=== PATIENT | male | born 1965 | race Hispanic/Latino ===

== ENCOUNTER 2022-08-07 22:17 | Emergency (ER) | payer BC ==
[~2022-08-07] VITALS: Ht 167.6 cm; Wt 80.7 kg
[2022-08-07 22:24] VITALS: BP 164/94
[2022-08-07] MEDS ORDERED: AMOX1TAB16 PO (23:14)
[2022-08-07] MEDS ORDERED: IBUPROFEN 600 MG TABLET PO ONE (23:30)
[2022-08-07] MEDS ORDERED: TETANUS/DIPHTHERIA TOXOID [ADULT] 0.5 ML VIAL IM ONE (23:30)
[2022-08-08] MEDS ORDERED: CEFTRIAXONE 1G VIAL IM ONE (00:30)
[2022-08-08] MEDS ORDERED: ACET-2079 PO (05:25)
[2022-08-11] MEDS ORDERED: AMLO2.5T4 PO (14:07)
[2022-08-11] MEDS ORDERED: LOSA25TA41 PO (14:07)
[2022-08-11] MEDS ORDERED: AMOX1TAB16 PO (14:29)
== END 2022-08-08 00:44 | disposition home or self-care (01) ==
LOC: EDH 22:17
DX: S56.011A Strain of flexor muscle, fascia and tendon of right thumb at forearm level, initial encounter (principal); I10 Essential (primary) hypertension; E78.00 Pure hypercholesterolemia, unspecified; I25.2 Old myocardial infarction; E11.9 Type 2 diabetes mellitus without complications; J44.9 Chronic obstructive pulmonary disease, unspecified; W54.0XXA Bitten by dog, initial encounter; Y93.89 Activity, other specified; Y92.89 Other specified places as the place of occurrence of the external cause; Y99.8 Other external cause status
CPT/HCPCS: 99284 ×2; 90714; 73100; 73090; 90471; 96372 ×2; J0696; J2270

== ENCOUNTER 2022-08-08 04:11 | Emergency (ER) | payer BC ==
[~2022-08-08] VITALS: Ht 167.6 cm; Wt 80.7 kg
[~2022-08-08 04:11] MED LIST: AMOX1TAB16 PO
[2022-08-08 04:17] VITALS: BP 145/89
[2022-08-08] MEDS ORDERED: MORPHINE 4 MG SYG ONE (04:27)
[2022-08-08] MEDS ORDERED: MORPHINE 4 MG SYG IM ONE (05:00)
[2022-08-08] MEDS ORDERED: ACET-2079 PO (05:25)
[2022-08-11] MEDS ORDERED: LOSA25TA41 PO (14:07)
[2022-08-11] MEDS ORDERED: AMLO2.5T4 PO (14:07)
[2022-08-11] MEDS ORDERED: AMOX1TAB16 PO (14:29)
== END 2022-08-08 05:34 | disposition home or self-care (01) ==
LOC: EDH 04:11
DX: S66.211A Strain of extensor muscle, fascia and tendon of right thumb at wrist and hand level, initial encounter (principal); I10 Essential (primary) hypertension; E11.9 Type 2 diabetes mellitus without complications; E78.00 Pure hypercholesterolemia, unspecified; J44.9 Chronic obstructive pulmonary disease, unspecified; W54.0XXA Bitten by dog, initial encounter; Y93.89 Activity, other specified; Y92.89 Other specified places as the place of occurrence of the external cause; Y99.8 Other external cause status
CPT/HCPCS: 99284; 96372 ×2; J0696; J2270